=== PATIENT | female | born 1995 ===

== ENCOUNTER 2020-12-16 10:20 | Emergency (ER) | payer SELFPAY ==
[~2020-12-16] VITALS: Ht 160 cm; Wt 52.3 kg
[2020-12-16 10:28] VITALS: BP 112/67
== END 2020-12-16 13:00 | disposition home or self-care (01) ==
LOC: EMS 10:24
DX: R69 Illness, unspecified (principal); Z53.21 Procedure and treatment not carried out due to patient leaving prior to being seen by health care provider